=== PATIENT | female | born 1970 | race Asian ===

== ENCOUNTER 2017-07-16 15:44 | Emergency (ER) | payer OTHER ==
[2017-07-16] MEDS ORDERED: RANITIDINE 50 MG/2 ML VIAL IVP ONE (15:55)
[2017-07-16] MEDS ORDERED: NS 1,000 ML IV ONE (15:55)
[2017-07-16 15:56] VITALS: RESP 16; TEMP 98.1
--- NOTE | 2017-07-16 16:00 | EDPHY ---
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 When exposed to apples her mouth becomes itchy and swells. In the past, she has taken several Benadryl and symptoms improved in a few hours. She does not have an epi pen. Today, she took a bite of monkey bread made by a friend and tasted apples. Immediately she spit it out but continued to feel itching in the back of her throat and began coughing. She tried to drink water but symptoms did not improve. Coworkers called paramedics who noted that she was struggling to breathe. EMS administered epinephrine, Solu Medrol, and Benadryl. She reports feeling better, but continues to clear her throat occasionally and has some itchiness in the back of her throat. No fever, chills, chest pain, palpitations, vomiting, diarrhea, urinary complaints, headache, lightheadedness. REVIEW OF SYSTEMS: Aside from elements discussed in the HPI, a comprehensive 10-point review of systems was reviewed and is negative. 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 HEENT: Atraumatic. Eyes: No icterus, no injection. Mouth: Slight angioedema of uvula. Moist mucous membranes. No erythema or lesions. Neck: supple with no adenopathy. No stridor. LUNGS: Clear to auscultation bilaterally, no wheezes, rhonchi or rales. No stridor. CARDIAC: Regular rate and rhythm, no rubs, murmurs or gallops. ABDOMEN: Soft, nontender, nondistended, bowel sounds normal. BACK: No CVA tenderness. EXTREMITIES: No trauma. No edema. Range of motion is normal throughout. NEURO: Alert and oriented, grossly nonfocal. SKIN: Warm and dry, no rash. No urticaria. PSYCHIATRIC: Normal mentation, no agitation. ED Course: The patient presents with throat itching and coughing after an exposure to apples, to which she is allergic. In the past symptoms have resolved with Benadryl. Co-workers called EMS as patient was having difficultly breathing. EMS administered Solu Medrol, Benadryl, and epinephrine. She reports feeling better now but has some throat itchiness and has some associated itchiness in her throat. On exam, she has slight edema to the uvula. Fluids and Zantac will be administered in the ED. She will be serial reexamined until symptoms resolve. 6:00 p.m.: Patient re-examined. She reports feeling entirely well. She has had no further coughing, no shortness of breath, no swelling. No rash. I discussed her aftercare instructions at length and encouraged her to use Benadryl or other antihistamines as needed for itching, take prednisone on a regular basis, and take Zantac or Pepcid on a regular basis, and keep an EpiPen with her at all times. She agrees to this course of action. MDM: Differential diagnoses for the patient's symptom complex was considered including but not limited to allergic reaction, urticaria, anaphylaxis, hereditary angioedema, drug-induced reaction. - Data Points Medications Given: Discontinued Medications Sodium Chloride (Ns) 1,000 mls @ 0 mls/hr IV ONCE ONE; Wide Open PRN Reason: Protocol Stop: 07/16/17 15:56 Last Admin: 07/16/17 15:59 Dose: 1,000 mls Ranitidine HCl (Zantac) 50 mg IVP EDNOW ONE Stop: 07/16/17 15:56 Last Admin: 07/16/17 15:59 Dose: 50 mg General Time Seen by Provider: 07/16/17 15:44 Initial Vital Signs: Initial Vital Signs Temperature (C) 36.7 C 07/16/17 15:52 Heart Rate 75 07/16/17 15:52 Respiratory Rate 16 07/16/17 15:52 Blood Pressure 116/75 07/16/17 15:52 O2 Sat (%) 97 07/16/17 15:52 O2 Delivery Mode Room Air Allergies/Adverse Reactions: apple Allergy (Verified 07/16/17 15:49) Home Medications: Medication Instructions Recorded Aciphex 07/16/17 EPINEPHrine [Epipen 0.3 MG] 0.3 mg IM ONCE #2 syr 07/16/17 Microphenedate 03/22/18 Omeprazole 07/16/17 Sertraline HCl 07/16/17 Ventolin Hfa 07/16/17 Zoloft 100mg (*) 07/16/17 predniSONE 60 mg PO DAILY #9 tab 07/16/17 Departure - Departure Disposition: Home, Routine, Self-Care Clinical Impression: Acute anaphylaxis Qualifiers: Encounter type: initial encounter Qualified Code(s): T78.2XXA - Anaphylactic shock, unspecified, initial encounter Allergic reaction Qualifiers: Encounter type: subsequent encounter Qualified Code(s): T78.40XD - Allergy, unspecified, subsequent encounter Condition: Good Instructions: Food Allergy (ED), Anaphylaxis (ED) Additional Instructions: There are 4 medications used to treat allergic reactions. #1. The first is epinephrine. Please use the epinephrine pen in the future as needed if you develops acute swelling, throat tightness, shortness of breath, or severe rash in the setting of allergic reaction. #2. The second type of medication are antihistamines. The most common antihistamine is diphenhydramine (Benadryl). Dose is 25-50 mg every 6-8 hours as needed for itching and rash. Diphenhydramine can be sedating. Another type of antihistamine is loratadine (Claritin). This is taken once a day. It is not sedating. Repeat doses of antihistamines may be needed as the hives will come and go over the next several days. You may notice that the hives are worse after exposure to heat, warm showers, or exertion. #3. The third medication is Pepcid which is another type of an antihistamine. Dose is 20 mg once a day for 3 days. This should be taken on a regular basis. #4. The fourth medication is prednisone, which is a steroid. The dose is 40 mg a day x3 doses. Please take this as instructed. #5. Return to emergency department or seek care urgently if severe shortness of breath develops, swelling of the lips, eyelids, or sensation that the throat is closing. Please follow up with your primary care physician as needed. Referrals: Patient,NotPresent [Unknown] - As per Instructions Prescriptions: EPINEPHrine [Epipen 0.3 MG] 0.3 mg IM ONCE #2 syr predniSONE 60 mg PO DAILY #9 tab Report Scribed for: Apryl Drake Report Scribed by: Eli Nicolas Date of Report: 07/16/17 Time of Report: 16:03 Physician Review and Approval Statement: Portions of this note were transcribed by a medical records receptionist. I personally performed a history, physical exam, medical decision making, and confirmed accuracy of information the transcribed note.
[2017-07-16 18:03] VITALS: BP 122/74; PULSE 84; O2SAT 96
== END 2017-07-16 18:03 | disposition home or self-care (01) ==
LOC: EDUNIT#
DX: T78.2XXA Anaphylactic shock, unspecified, initial encounter (principal); J45.909 Unspecified asthma, uncomplicated; E86.9 Volume depletion, unspecified
CPT/HCPCS: 96374; J2780